=== PATIENT | male | born 1965 ===

== ENCOUNTER 2018-01-30 16:58 | Emergency (ER) | payer OTHER ==
[2018-01-30] MEDS ORDERED: Diph,Pert(Acell),Tet Vac 0.5 ML SYR IM ONE (17:13)
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
== END 2018-01-30 18:10 | disposition home or self-care (01) ==
LOC: ER 16:58
DX: T20.24XA Burn of second degree of nose (septum), initial encounter (principal); T20.12XA Burn of first degree of lip(s), initial encounter; T20.112A Burn of first degree of left ear [any part, except ear drum], initial encounter; X08.8XXA Exposure to other specified smoke, fire and flames, initial encounter; W40.9XXA Explosion of unspecified explosive materials, initial encounter; Y92.63 Factory as the place of occurrence of the external cause; Y99.0 Civilian activity done for income or pay
CPT/HCPCS: 90715; 96372; 99283